=== PATIENT | male | born 1950 | race Caucasian/White ===

== ENCOUNTER → 2016-09-11 | Outpatient (CLI) | payer BC ==
[~2016-09-11] VITALS: Ht 177.8 cm; Wt 99.8 kg
[~2016-09-11] MED LIST: ACET325T9 PO; BUPIVACAINE 0.5% 50 ML VIAL. IJ ONE; CONTRAST GIVEN MC PRN; IOHEXOL 300 MG/ML 10ML VIAL. IJ ONE; LIDOCAINE 1% / SOD BICARB 8.4% 20 ML VIAL. IJ ONE; methylPREDNISolone ACETATE 80 MG/ML VIAL. IM ONE
[2016-09-11 12:24] VITALS: BP 149/71
--- NOTE | 2016-09-11 13:31 | RAD ---
Fluoroscopically guided right hip joint injection, 09/11/2016: History: Hip pain Under local anesthesia, aseptic conditions and fluoroscopic guidance a 22-gauge spinal needle was passed into the right hip joint via an anterior approach. A small amount of iodinated contrast material was injected confirm intra-articular positioning following which 80 mg of Depo-Medrol mixed with 4 cc of 0.5% Sensorcaine was injected into the joint as requested. The needle was then removed and hemostasis obtained. 0.5 minutes of fluoroscopy time was utilized. One fluoroscopic spot image was recorded. The patient tolerated the procedure well and left the department in good condition.
== END | disposition home or self-care (01) ==
LOC: RAD 12:55
PROVIDERS: ATTEND Orthopaedic Surgery Sports Medicine
DX: M25.551 Pain in right hip (principal); F17.200 Nicotine dependence, unspecified, uncomplicated
CPT/HCPCS: 20605; 77002; J1040; J3490; Q9967